=== PATIENT | female | born 1955 | race Caucasian/White ===

== ENCOUNTER 2018-07-31 00:35 | Outpatient (CLI) | payer BC, SELFPAY ==
--- NOTE | 2018-07-31 07:35 | DI.MRI_ITS ---
SYMPTOM/DIAGNOSIS: BILAT LEG WEAKNESS R29.898 MRI LUMBAR SPINE: Comparison 05/09/17. The conus medullaris has a normal appearance and location. At L5-S1 there is a mild diffuse disc bulge but no focal disc herniation, central spinal canal or neuroforaminal stenosis seen. There are degenerative changes of the facets with facet joints present. At L4-L5 there is disc desiccation and a mild diffuse disc bulge. There are hypertrophic changes of the facets. No focal disc herniation or central spinal canal stenosis is seen. There is mild narrowing of the neural foramen bilaterally but no compression of the exiting nerve roots seen. At L3-L4 there is disc desiccation. There is a diffuse disc bulge. There are degenerative changes of the facets. No significant central spinal canal stenosis or focal disc herniation seen. There is mild narrowing of the neural foramen bilaterally but no compression of the exiting nerve roots seen. At L2-L3 there is disc desiccation. No focal disc herniation, central spinal canal or neural foraminal stenosis seen. There does appear to be a mild diffuse disc bulge. At L1-L2 there is a mild diffuse disc bulge but no focal disc herniation, central spinal canal stenosis or significant neural foraminal stenosis present. Overall, there does not appear to be any significant change in appearance of the lumbar spine compared to the prior examination. IMPRESSION: Stable multi-level degenerative changes in the lumbar spine.
--- NOTE | 2018-07-31 07:52 | DI.MAMMO_ITS ---
SYMPTOM/DIAGNOSIS: SCREENING, Z12.31 MAMMOGRAMS: Mammograms were interpreted according to the usual protocol including computer analysis with CAD system, tomosynthesis and C view imaging. Comparison is made with the prior examinations. No suspicious masses or microcalcifications are seen. There is no definite evidence of malignancy. IMPRESSION: Negative mammogram. Routine screening is recommended. Category 1 , breast density B. MQSA ASSESSMENT OF FINDINGS: Negative. Category 1. Patient will receive a letter notifying them of these results. BI-RADS category B. There are scattered areas of fibroglandular density.
== END 2018-07-31 00:55 ==
PROVIDERS: PCP Family Medicine; Visit Provider Emergency Medicine
DX: Z12.31 Encounter for screening mammogram for malignant neoplasm of breast (principal); R29.898 Other symptoms and signs involving the musculoskeletal system; M51.36 Other intervertebral disc degeneration, lumbar region
CPT/HCPCS: 77063; 77067; 72148

== ENCOUNTER 2018-09-05 12:06 | Outpatient (CLI) | payer BC, SELFPAY ==
[2018-09-05 12:14] VITALS: BP 111/70; PULSE 80; RESP 22; TEMP 35.8; O2SAT 97
[2018-09-05 13:30] VITALS: BP 142/71; PULSE 75; RESP 13; O2SAT 98
--- NOTE | 2018-09-05 13:32 | DI.RAD_ITS ---
SYMPTOM/DIAGNOSIS: LUMBAR RADICULOPATHY, TRANSFORAMINAL EPIDURAL STEROID INJECTION C-ARM: Fluoroscopy Time: 36.1 sec. 33.66 mGy Fluoroscopy was utilized by Dr. Carbajal during the performance of a transforaminal epidural steroid injection. Please refer to the procedure report for complete details.
[2018-09-05] MEDS: methylPREDNISolone ACETATE 40 MG/ML VIAL IJ (13:35)
[2018-09-05] MEDS: Omnipaque 240 MG/ML 50 ML BTL IJ (13:35)
[2018-09-05] MEDS: Bupivacaine 0.5% Pres-Free 30 ML VIAL IJ (13:36)
--- NOTE | 2018-09-05 13:49 | PDOC.PAIN_ITS ---
Pain Clinic Procedure Note Current Active Problems Problem Status Onset Lumbar disc herniation with radiculopathy Acute 11/28/17 LUMBAR / SACRAL TRANSFORAMINAL INJECTION ONUR GRAFF has been [facility] for a transforaminal nerve root block and steroid injection. COMMENTS: Patient has had right radicular symptoms foot drop with possible disc fragment at L5. This year and a half. Patient was interviewed and the medical record reviewed. There were no medical, pharmacologic, radiographic or other structural contraindications to attempting fluoroscopically guided transforaminal nerve root block and epidural steroid injection. Risks and expected side effects as well as potential benefit of the procedure were reviewed and voiced concerns addressed. The printed consent form was signed and witnessed. Standard time-out procedure was performed. Patient was placed in the prone position on the fluoroscopy table and automated blood pressure cuff and pulse oximeter applied. Fluoroscopy was utilized to identify the {right/ neural foramen between L5 and S1 . A skin ming was made for the needle insertion site. A Chlorhexadine prep was carried out, and sterile drapes were applied. Local anesthesia was achieved in the skin and subcutaneous tissues. A 22 gauge curved tip spinal needle was then inserted, advanced with fluoroscopic guidance into the neural foramen, confirmed on the lateral view. After negative aspiration, 2 ml of Omnipaque 240 was injected confirming position in A/P and lateral views. This showed a good spread of dye transforaminally into the epidural space. There was no vascular update with contrast injection under continuous fluoroscopy and digital substraction. 40 mg of Depo-Medrol was injected, followed by 0.5 ml of 1% Xylocaine flush for the nerve root block, as well. There was no unusual discomfort expressed.The needle was withdrawn. The patient tolerated the procedure well. A Band-Aid was applied. Vital signs were stable throughout the procedure and were as recorded in nursing records. If given, dosages of intravenous drugs for anxiolysis and analgesia were documented in nursing records. Follow up plans and appointments were discussed. Post procedure instruction was given as documented in nursing records and patient was discharged in the care of an identified special events driver. COMMENTS: Contrast spread spread to the L4 level. I would recommend seeing her in the office if this is not effective. Patient will follow-up as needed CC: Rojelio Rajput MD
== END 2018-09-05 12:26 ==
PROVIDERS: PCP Family Medicine; Visit Provider Anesthesiology Pain Medicine
DX: M51.16 Intervertebral disc disorders with radiculopathy, lumbar region (principal)
CPT/HCPCS: 64483; 72100; J1030; Q9967

== ENCOUNTER 2019-01-30 10:25 | Outpatient (CLI) | payer BC, SELFPAY ==
[2019-01-30 12:31] LABS: Abs Immature Grans 0.01 k/cumm (0.0-0.09); Absolute Basophil Count 0.02 k/cumm (0.0-0.2); Absolute Eosinophil Count 0.08 k/cumm (0.0-0.7); Absolute Lymphocyte Count 1.95 k/cumm (1.2-3.4); Absolute Monocyte Count 0.34 k/cumm (0.11-0.7); Absolute Neutrophil Count 2.62 k/cumm (1.2-6.7); Basophils % 0.4; Eosinophils % 1.6; HCT 44.3 % (36.0-46.0); HGB 14.6 g/dL (12.0-15.5); Immature Grans % 0.2; Lymphocytes % 38.8; Mean Corpuscular Hemoglobin 28.7 pg (27.0-33.0); Mean Platelet Volume 9.9 fL (8.0-11.0); Monocytes % 6.8; Neutrophils % 52.2; Platelet Count 295 x1000/uL (130-400); RBC 5.09 m/cumm (4.00-5.20); RBC Distribution Width 13.1 % (11.7-14.6); White Blood Cell Count 5.02 k/cumm (4.4-10.8)
[2019-01-30 13:02] LABS: ALT 27 U/L (12-78); AST 14 U/L (15-37); Albumin 3.6 g/dL (3.4-5.0); Alkaline Phosphatase 83 U/L (46-116); Anion Gap 8.3 mmol/L (3-11); BUN 17 mg/dL (7-18); Bilirubin, Total 0.4 mg/dL (0.2-1.0); CO2 26.7 mmol/L (21.0-32.0); CREATININE 0.92 mg/dL (0.55-1.02); Calcium 9.2 mg/dL (8.5-10.1); Chloride 104 mmol/L (98-107); Glucose 91 mg/dL (70-100); Potassium 4.3 mmol/L (3.5-5.1); Sodium 139 mmol/L (136-145); Total Protein 6.6 g/dL (6.4-8.2)
== END 2019-01-30 10:45 ==
PROVIDERS: PCP Family Medicine; Visit Provider Emergency Medicine
DX: R10.9 Unspecified abdominal pain (principal)
CPT/HCPCS: 36415; 80053; 85025

== ENCOUNTER 2019-01-31 08:12 | Outpatient (REF) | payer BC, SELFPAY | END 2019-01-31 08:32 | LOC: LBN 08:12 | PROVIDERS: PCP Family Medicine; Visit Provider Emergency Medicine | DX: R10.9 Unspecified abdominal pain (principal) | CPT/HCPCS: 87329; 87324 ==

== ENCOUNTER 2019-02-01 08:22 | Outpatient (REF) | payer BC, SELFPAY | END 2019-02-01 08:42 | LOC: LBN 08:22 | PROVIDERS: PCP Family Medicine; Visit Provider Emergency Medicine | DX: R10.9 Unspecified abdominal pain (principal) | CPT/HCPCS: 87329 ==

== ENCOUNTER 2019-03-22 01:45 | Outpatient (CLI) | payer BC, SELFPAY ==
--- NOTE | 2019-03-22 15:44 | DI.MRI_ITS ---
SYMPTOMS/DIAGNOSIS: RIGHT LEG WEAKNESS AND SCIATICA, R29.898 MRI OF THE LUMBAR SPINE: Comparison is made with July,. T1, T2 and STIR sagittal, and T1 and T2 axial sequences were performed. At L1-2, there is mild disc bulging and mild facet degenerative changes. There is mild narrowing of the AP dimension of the central canal. At L2-3, there is minimal concentric disc bulging. There is no significant neural foraminal narrowing or central canal stenosis. At L3-4, there is disc bulging eccentric toward the right. There may be an impingement on right-sided nerve roots. There are mild fact degenerative changes combining with the disc bulging to produce severe right neural foraminal narrowing and moderate left neural foraminal narrowing. At L4-5, there is mild concentric disc bulging. There are mild facet degenerative changes combining with the disc bulging to produce mild to moderate neural foraminal narrowing. At L5-S1, there is no significant disc bulging. There are minimal facet degenerative changes. There is no central canal stenosis or neural foraminal narrowing. The conus medullaris appears intact. There are parapelvic cysts of the left kidney. The aorta is normal in diameter. IMPRESSION: Disc bulging, eccentric toward the right at L3-4 causing bilateral neural foraminal narrowing, right greater than left. There is also likely nerve root impingement.
== END 2019-03-22 02:05 ==
PROVIDERS: PCP Family Medicine; Visit Provider Emergency Medicine
DX: R29.898 Other symptoms and signs involving the musculoskeletal system (principal); M54.31 Sciatica, right side; M51.16 Intervertebral disc disorders with radiculopathy, lumbar region
CPT/HCPCS: 72148

== ENCOUNTER 2019-08-07 10:19 | Outpatient (CLI) | payer BC, SELFPAY ==
--- NOTE | 2019-08-07 09:41 | DI.RAD_ITS ---
EXAM: XR CHEST 2V PA LATERAL CLINICAL HISTORY: chest pain, R07.9. TECHNIQUE: 2D digital imaging was performed. COMPARISON: RIGHT SHOULDER COMPLETE from 09/01/2017 FINDINGS: LUNGS: Clear. No pleural abnormality seen. HEART: Normal. MEDIASTINUM: Normal. OTHER FINDINGS:Normal. IMPRESSION: No acute pulmonary findings.
[2019-08-07 10:06] LABS: Abs Immature Grans 0.01 k/cumm (0.0-0.09); Absolute Basophil Count 0.03 k/cumm (0.0-0.2); Absolute Lymphocyte Count 1.78 k/cumm (1.2-3.4); Absolute Monocyte Count 0.39 k/cumm (0.11-0.7); Absolute Neutrophil Count 2.95 k/cumm (1.2-6.7); Basophils % 0.6; Eosinophils % 3.7; HCT 42.7 % (36.0-46.0); Immature Grans % 0.2; Lymphocytes % 33.2; Mean Corp. HGB Concentration 32.8 g/dL (32.0-36.0); Mean Corpuscular Hemoglobin 28.8 pg (27.0-33.0); Mean Corpuscular Volume 87.9 fL (80-95); Mean Platelet Volume 9.4 fL (8.0-11.0); Monocytes % 7.3; Platelet Count 333 x1000/uL (130-400); RBC 4.86 m/cumm (4.00-5.20); RBC Distribution Width 13.5 % (11.7-14.6); White Blood Cell Count 5.36 k/cumm (4.4-10.8)
[2019-08-07 10:50] LABS: D-Dimer 711 ng/mlFEU (<500)
[2019-08-07 10:53] LABS: ESR 7 mm/hr (0-30)
[2019-08-07 11:03] LABS: ALT 22 U/L (14-59); AST 9 U/L (15-37); Albumin 3.7 g/dL (3.4-5.0); Alkaline Phosphatase 68 U/L (46-116); Anion Gap 8.3 mmol/L (3-11); BUN 13 mg/dL (7-18); Bilirubin, Total 0.4 mg/dL (0.2-1.0); C-Reactive Protein 0.12 mg/dL (0.0-0.3); CO2 27.7 mmol/L (21.0-32.0); CREATININE 0.92 mg/dL (0.55-1.02); Calcium 9.1 mg/dL (8.5-10.1); Chloride 107 mmol/L (98-107); Glucose 89 mg/dL (74-106); Sodium 143 mmol/L (136-145); Total Protein 6.3 g/dL (6.4-8.2)
--- NOTE | 2019-08-07 15:01 | DI.CT_ITS ---
EXAM: CT CHEST PE CTA CLINICAL HISTORY: SOB, chest pain, ? PE, R06.02 TECHNIQUE: Imaging Protocol: Axial CT angiography was performed with multislice acquisition and mul tiplanar and/or 3D reconstructions. CONTRAST MATERIAL: Intravenous: Omnipaque 350 Contrast volume:100 mL contrast route:IV - Oral:No COMPARISON: CHEST ABD PELVIS WITH CONTRAST from 05/18/2010 PELVIC/LOWER ABD WITH CON(P) from 01/21/2016 RIGHT SHOULDER COMPLETE from 09/01/2017 FINDINGS: Pulmonary Arteries: No evidence of filling defect to suggest pulmonary emboli. Tracheobronchial tree: Patent where visualized. Mediastinum and Angela: No dominant adenopathy or fluid collection. Pulmonary parenchyma: No consolidation or dominant measurable mass. No architectural distortion. Area s of atelectasis or scarring are present. Pleura: No effusion or pneumothorax. Heart/Aorta: Thoracic aorta non-dilated. The heart is not dilated. No coronary artery calcifications are seen. No evidence of right heart strain. Upper abdomen: Unremarkable. Bones: There are mild compression deformities of the superior endplates of a few thoracic vertebral b odies; these are of indeterminate acuity. Followup as clinically appropriate. IMPRESSION: No evidence of a pulmonary embolus, thoracic aortic dissection or aneurysm. DATA REPOSITORY: All CT scans at this facility are submitted to the National Radiology Data Registry (NRDR) Dose Index Registry (DIR) with the [employer] (ACR). RADIATION OPTIMIZATION: All CT scans at this facility use at least one of these dose optimization te chniques: automated exposure control; mA and/or kV adjustment per patient size (includes targeted exa ms where dose is matched to clinical indication); or iterative reconstruction.
[2019-08-07] MEDS: Omnipaque 350 MG/ML 100 ML BTL IJ (15:06)
== END 2019-08-07 10:39 ==
PROVIDERS: PCP Emergency Medicine; Visit Provider Emergency Medicine
DX: R07.9 Chest pain, unspecified (principal); R06.02 Shortness of breath
CPT/HCPCS: 36415; 71275; 80053; 85652; 71046; 85025; 85379; 86140; J3490

== ENCOUNTER 2021-03-29 14:53 | Outpatient (REF) | payer MEDICARE, BC, SELFPAY | END 2021-03-29 14:54 | disposition home or self-care (01) | LOC: LBN 14:53 | PROVIDERS: PCP Emergency Medicine; Visit Provider Physician Assistant | DX: N39.0 Urinary tract infection, site not specified (principal) | CPT/HCPCS: 87086 ==

== ENCOUNTER 2021-05-08 10:23 | Emergency (ER) | payer MEDICARE, BC, SELFPAY ==
[2021-05-08 10:26] VITALS: BP 130/71; PULSE 64; RESP 16; TEMP 36; O2SAT 98
--- NOTE | 2021-05-08 10:42 | W.ED.GENAD ---
Discharge Plan Disposition Patient Disposition: HOME Condition: Stable Discharge Details Clinical Impression: Vertical diplopia, Headache Primary Care Provider: Percy Alcala ED Provider: Flor Reese Home Meds and New Rx's Prescriptions: Continued Shingrix Adjuvant Component-PF Suspension 0.5 ml IM ONCE Qty: 0.5 RF: 1 cetirizine [Zyrtec] 10 MG tablet 10 mg PO BID Qty: 180 RF: 4 ibuprofen 200 MG capsule 2 cap PO Q4H PRN RF: 0 albuterol sulfate [Ventolin HFA] 8 GM HFA aerosol inhaler 2 puff Inhalation QID PRNQty: 1 RF: 1 sumatriptan succinate [Imitrex] 50 mg tablet 50 mg PO DIRECTED Qty: 10 RF: 0 fluticasone propion-salmeterol [Advair Diskus] 250-50 mcg/dose blister with device 1 inh Inhalation DAILY Qty: 3 RF: 6 gabapentin 300 mg capsule 300 mg PO HS RF: 0 Discharge Instructions Instructions: General Headache (ED) Additional Instructions: Please continue to encourage hydration. You may use Tylenol and/or ibuprofen as needed for discomfort. Plan is for you to have an MRI/MRV on Monday or Monday. You also have prompt follow-up with optic neurology. Your imaging and labs are reassuring here today. Dr. Howard with neurology at [facility] did recommend that he hold off on any dosing of your sumatriptan . If you develop fever/chills, increased pain, inability stay hydrated, new neurological deficits or other new/worsening symptoms please seek care immediately once again. Referrals: Percy Alcala, [Primary Care Provider] - Discharge Data Discharge Date/Time-TO BE ENTERED AT DEPARTURE: 05/08/21 15:30 Medical Decision Making Patient is a pleasant 65-year-old female presenting today with chief complaint of visual changes and headache. She reports that headache began approximately 1 week ago. She does report that she suffers from chronic migraines. However, typically the migraine pain is on the right side and this began the left side. She describes a sudden onset. States that the headache has remained persistent since beginning and rates the pain at a 3 out of 10. 3 days ago she began having vertical diplopia, worse in the right side. States that she was seen by [facility]. They did not note any ocular abnormalities and referred her to an ocular neurologist at [facility] with appointment pending. She is found wearing an eye patch helpful at this decreases her diplopia. She denies any fevers or chills. No rash. Indicates the left jainism is area of discomfort. Has not had any jaw claudication. On exam, patient appears nontoxic. She has no nuchal rigidity. She does have the vertical diplopia. Her baseline she has been, I do not note any visual field abnormalities. Extraocular movements are intact. I cannot appreciate any correction when covering one eye or the other for the vertical nystagmus. However, [id number] does demonstrate that she has to come up just slightly particularly with the right hand at the last minute when she corrects for her vision. No other neurological deficit. No pain with palpation over the left jainism. Pathology has been ruled out patient continues to have vertical diplopia, I am concerned for intracranial pathology as source of her symptoms. While she did not have any jainism pain with palpation, she does indicate this is area of discomfort. Will obtain ESR to rule out temporal arteritis although symptoms are not consistent with this. Also consider brain mass, bleed. Will obtain CT, CTA as well as baseline labs. Also consider complex migraine given the patient's history of migraines. Patient declines any analgesics at this time. Labs reviewed. No leukocytosis. Stable H&H. CMP without significant abnormality. ESR within normal limits. FINDINGS: Right common carotid artery: No stenosis. No dissection or occlusion. Right internal carotid artery: No stenosis of the extracranial segment. No dissection or occlusion. Right external carotid artery: No occlusion or stenosis of the origin. Left common carotid artery: No stenosis. No dissection or occlusion. Left internal carotid artery: No stenosis of the extracranial segment. No dissection or occlusion. Left external carotid artery: No occlusion or stenosis of the origin. Right vertebral artery: No stenosis. No dissection or occlusion. Left vertebral artery: No stenosis. No dissection or occlusion. Soft tissues: Normal. No significant soft tissue swelling. Bones/joints: No acute fracture. IMPRESSION: No stenosis or occlusion. ANTERIOR CIRCULATION: Right internal carotid artery: Unremarkable. Intracranial segment is patent with no significant stenosis. No aneurysm. Right middle cerebral artery: Unremarkable. No occlusion or significant stenosis. No aneurysm. Right anterior cerebral artery: Unremarkable. No occlusion or significant stenosis. No aneurysm. Left internal carotid artery: Unremarkable. Intracranial segment is patent with no significant stenosis. No aneurysm. Left middle cerebral artery: Unremarkable. No occlusion or significant stenosis. No aneurysm. Left anterior cerebral artery: Unremarkable. No occlusion or significant stenosis. No aneurysm POSTERIOR CIRCULATION: Right vertebral artery: Unremarkable. No occlusion or significant stenosis. No aneurysm. Left vertebral artery: Unremarkable. No occlusion or significant stenosis. No aneurysm. Basilar artery: Unremarkable. No occlusion or significant stenosis. No aneurysm. Right posterior cerebral artery: Unremarkable. No occlusion or significant stenosis. No aneurysm. Left posterior cerebral artery: Unremarkable. No occlusion or significant stenosis. No aneurysm. Brain: No definite mass, mass effect, or midline shift. Cerebral ventricles: No ventriculomegaly. Bones/joints: Unremarkable. No acute fracture. Soft tissues: Unremarkable. IMPRESSION: No large vessel stenosis or occlusion. No aneurysm seen. With patients persistent vertical diplopia, as well as headache, will consult with neurology at [facility] [place]. Patient reports that she would now like something for her headache. Headache is not worsening. Will give Compazine and Benadryl. Spoke with Dr. Howard with neurology at [facility] [place]. Questioning trochlear nerve palsy or complex migraine. Does not believe she needs MRI today but should have MRI/MRV Monday or Monday. If it gets worse go to for evaluation for neurology. Recommended depakote for MOSLEY if needed but avoid tryptans. She has advised the plan of Compazine would be appropriate. Discussed these recommendations with the patient. She is managing well with her eye patch which helps remove the diplopia. She is also able to keep headache under control with avoidance of bright lights. Strict return precautions were discussed. Patient does feel safe going home until MRI and MRV are able to be obtained. She will call up with neurology at [facility] [place] on Monday to schedule prompt follow-up appointment. Dr. Howard is going to try to move her appointment up that she is able to see their specialist urgently. All of her questions and concerns were addressed and she is in agreement this plan. HPI General Mode of arrival: ambulatory. Date/Time Provider Initiated Documentation: 05/08/21 10:28. Limitations to Documentation: no limitations. Information obtained by: patient, family () and RN notes reviewed. History of Present Illness 65 year old F presents to the emergency department with the chief complaint of headache, vertical diplopia, described as moderate, with intensity rated at 3. Quality is described as aching, and is localized to the head. Patient reports no radiation. Patient started experiencing this week(s) (1) and it has been constant. No relieving factors improve symptom(s), Other factors that worsen symptoms (photophobia) . Patient notes headaches; denies confusion, chest pain, diaphoresis, fever/chills, loss of appetite, nausea/vomiting, rash, shortness of breath, syncope and weakness. Patient did receive the following treatments prior to arrival, NSAID Related Data Home Medications Medication Instructions Recorded Confirmed cetirizine [Zyrtec] 10 mg PO BID #180 01/31/13 05/08/21 ibuprofen 2 cap PO Q4H PRN 02/23/15 05/08/21 albuterol sulfate [Ventolin HFA] 2 puff INHALATION QID PRN #1 ea 06/23/16 03/29/21 sumatriptan succinate 50 mg tablet 50 mg PO DIRECTED #10 tab 02/11/19 05/08/21 adjuvant AS01B (PF)vial 1 of 2 0.5 ml IM ONCE #0.5 ml 07/08/20 03/29/21 fluticasone 250 mcg-salmeterol 50 1 inh INHALATION DAILY #3 each 10/08/20 05/08/21 mcg/dose blistr powdr for inhalation gabapentin 300 mg PO HS 05/08/21 05/08/21 Previous Rx's Medication Instructions Recorded sumatriptan succinate 50 mg tablet 50 mg PO DIRECTED #10 tab 02/11/19 adjuvant AS01B (PF)vial 1 of 2 0.5 ml IM ONCE #0.5 ml 07/08/20 fluticasone 250 mcg-salmeterol 50 1 inh INHALATION DAILY #3 each 10/08/20 mcg/dose blistr powdr for inhalation Allergies Allergy/AdvReac Type Severity Reaction Status Date / Time Penicillins Allergy Unknown HIVES Verified 05/08/21 10:34 azithromycin AdvReac Intermediate nausea Verified 05/08/21 10:34 vomitting General Stated Complaint: Headache OZZIE: 3 Review of Systems Constitutional Constitutional: Reports as per HPI, Denies chills, Denies fever(s), Denies frequent falls, Reports headache(s) and Denies weakness Eyes Eyes: Reports as per HPI, Denies blurry vision, Reports change in vision, Reports diplopia (vertical) and Reports photophobia ENT Ears, Nose, Mouth, and Throat: Denies vertigo, Reports headache(s) and Denies neck pain Cardiovascular Cardiovascular: Reports as per HPI, Denies chest pain, Denies lightheadedness, Denies radiating jaw, neck or arm pain, Denies dyspnea and Denies dyspnea on exertion Respiratory Respiratory: Reports as per HPI, Denies chest congestion, Denies cough, Denies dyspnea, Denies dyspnea on exertion, Denies stridor and Denies wheezing Gastrointestinal Gastrointestinal: Reports as per HPI, Denies abdominal pain, Denies change in bowel habits, Denies nausea and Denies vomiting Musculoskeletal Musculoskeletal: Reports as per HPI, Denies back pain, Denies myalgias, Denies muscle cramps, Denies neck pain and Denies numbness Integumentary/Breasts Skin/Breast: Reports as per HPI and Denies rash Neurologic Neurologic: Reports as per HPI, Denies abnormal movements, Denies abnormal speech, Denies behavioral changes, Denies confusion, Denies vertigo, Denies frequent falls, Reports headache(s), Denies localized weakness, Denies numbness, Denies sensory deficit and Denies weakness Psychiatric Psychiatric: Denies behavioral changes and Denies confusion Allergic/Immunologic Allergic/Immunologic: Denies wheezing PFSH Medical History Foot callus Surgical History BLADDER REPAIR Colonoscopy - IV Sedation (01/09/17) Colonoscopy - MAC 2005 Hysterectomy, Laproscopic Family History Mother , AGE 57 Ovarian cancer Father , AGE 87 Bladder cancer Heart disease Sister No problems noted. Son No problems noted. Daughter No problems noted. Maternal Grandfather , AGE 93 No problems noted. Paternal Grandfather , AGE 65 No problems noted. Maternal Grandmother , AGE 61 Cancer Paternal Grandmother , AGE 93 Breast cancer Social History Smoking/Tobacco Use Status: Never Smoking risk assessment performed?: Yes Alcohol Intake: current Alcohol Intake frequency: a few times a month Alcohol type: beer Drug use: Occasionally Substance use type: former substance user and marijuana Caregiver/Support person: No Household members: spouse Housing: house Number of Children: 2 Do you need help understanding health information?: Always Pets and animals: No Sexually active: Yes Do you think of yourself as: straight/heterosexual Current gender identity: female What is your relationship status?: How often do you talk on the phone with friends or family?: three or more times per week How often do you get together with friends or relatives?: twice per week How often do you attend buddhism or confucianism services?: decline to answer Do you belong to any clubs or organized social groups?: yes Panel score (0-1 are the most socially isolated patients): 3 What type of physical activity do you participate in: walking, weight lifting and other Duration: 45-60 minutes/day Frequency: daily Shraddha/Hindu: None Special shraddha needs: No Do you feel safe at home: Yes Do you feel safe in your relationship?: Yes Exam Const General: cooperative, healthy appearing, uncomfortable, no acute distress, well developed and well groomed Nutritional Appearance: average body habitus and well nourished Orientation: alert, awake and oriented x3 HENMT Head: normal to inspection, no palpable skull fracture, normocephalic and atraumatic Ears: hearing grossly normal bilaterally, external ears normal and TM's normal bilaterally General nose exam: external nose normal Mouth: oral mucosae normal and moist mucous membranes Throat: posterior oropharynx normal Eyes General: appearance normal, both eyes and all related structures Visual Guillory: normal visual guillory by confrontation Alignment and Position: alignment normal Periorbital: periorbital findings normal Eyelids: eyelids normal Sclera: sclerae normal Cornea: corneas normal Pupils: PERRL and normal by confrontation EOM: EOM intact bilaterally Neck Neck: normal visual inspection, full ROM, no lymphadenopathy and no meningeal signs Resp Effort & Inspection: normal respiratory effort, able to speak in complete sentences and no respiratory distress Auscultation: clear to auscultation bilaterally, no rales, no rhonchi and no wheezes Cardio Rate: regular rate Rhythm: regular rhythm Heart Sounds: S1 normal and S2 normal Back/Spine/Pelvis Cervical Spine: normal cervical lordosis and cervical ROM normal Skin General skin exam: no rashes or lesions noted Neuro General: patient alert, patient awake and patient oriented x3 Cranial Nerves: CN's II-XI intact bilaterally Cognition: normal cognition Speech: speech normal Gait: normal gait Motor: muscle tone normal throughout, strength 5/5 throughout, no pronator drift, no movement abnormalities noted and no fasciculations Sensory Exam: no sensory deficits noted Coordination: [id number] test normal, [id number] test normal and Romberg test normal Extrem General: normal to inspection, capillary refill normal, no pedal edema and no calf tenderness Psych Appearance: grossly normal and well kempt Mental Status: mental status grossly normal Speech and Movement: speech and movement normal Course Vital Signs Vital signs: Vital Signs Temperature 36 C L 05/08/21 10:26 Pulse 64 05/08/21 10:26 Respiratory Rate 16 05/08/21 10:26 Blood Pressure 130/71 05/08/21 10:26 Pulse Oximetry 98 05/08/21 10:26 Temperature 36 C L 05/08/21 10:26 Temperature Source Skin 05/08/21 10:26 Pulse 64 05/08/21 10:26 Respiratory Rate 16 05/08/21 10:26 Respiratory Effort 05/08/21 10:41 Blood Pressure 130/71 05/08/21 10:26 Blood Pressure Position Sitting 05/08/21 10:26 Pulse Oximetry 98 05/08/21 10:26 Oxygen Delivery Method Room Air 05/08/21 10:26 Oxygen Flow Rate 0 05/08/21 10:26 Pain Level 3 05/08/21 10:35 Comment 05/08/21 10:26
--- NOTE | 2021-05-08 11:20 | DI.CT_ITS ---
Exam(s) CT HEAD WO EXAM: CT HEAD WO CLINICAL HISTORY: vertical double vision, MOSLEY. TECHNIQUE: Imaging Protocol: Axial computed tomography images with coronal and sagittal reformatted images were created and reviewed COMPARISON: No exams were available for comparison FINDINGS: Ventricles and Extra axial spaces: Normal in size and morphology for the patient's age. Hemorrhage: None. Cerebral parenchyma: Normal. No evidence of an acute territorial infarct. Midline shift: None. Brainstem/Cerebellum: Normal. Calvarium: Normal. Visualized Paranasal sinuses/Mastoids: Mucous retention cyst or polyp in the left sphenoid sinus. Mi ld mucosal thickening in the ethmoid sinuses. The remaining visualized paranasal sinuses and mastoid air cells are clear. Soft Tissues: Unremarkable. IMPRESSION: No acute intracranial process. RADIATION DOSE DELIVERED: 673.9mGy.cm Total DLP DATA REPOSITORY: All CT scans at this facility are submitted to the National Radiology Data Registry (NRDR) Dose Index Registry (DIR) with the [employer] (ACR). RADIATION OPTIMIZATION: All CT scans at this facility use at least one of these dose optimization te chniques: automated exposure control; mA and/or kV adjustment per patient size (includes targeted exa ms where dose is matched to clinical indication); or iterative reconstruction.
[2021-05-08 11:26] LABS: Abs Immature Grans 0.03 10^3/uL (0.0-0.06); Absolute Basophil Count 0.05 10^3/uL (0.0-0.2); Absolute Eosinophil Count 0.17 10^3/uL (0.0-0.7); Absolute Lymphocyte Count 2.23 10^3/uL (1.2-3.4); Absolute Neutrophil Count 4.07 10^3/uL (1.2-6.7); Basophils % 0.7; Eosinophils % 2.4; HCT 45.5 % (36.0-46.0); HGB 14.7 g/dL (11.2-15.7); Immature Grans % 0.4; Lymphocytes % 31.6; MCH 28.2 pg (27.0-33.0); MCHC 32.3 % (32.0-36.0); MCV 87.3 fL (80-95); MPV 9.4 fL (8.0-11.0); Monocytes % 7.1; Neutrophils % 57.8; Nucleated RBC 0 %; Platelet Count 311 10^3/uL (130-400); RBC 5.21 10^6/uL (3.93-5.22); RDW 12.6 % (11.7-14.6); RDW-SD 40.1 fL; WBC 7.05 10^3/uL (4.4-10.8)
[2021-05-08 11:28] LABS: ESR 14 mm/hr (0-30)
[2021-05-08] MEDS: ACETAMINOPHEN 1,000 MG/100 ML BTL 400 MG IVPB (11:33)
--- NOTE | 2021-05-08 11:43 | DI.VRAD_ITS ---
PROCEDURE INFORMATION: Exam: CT Head Without Contrast Exam date and time: 05/08/2021 10:42 AM Age: 65 years old Clinical indication: Pain; Headache not specified; Patient HX: Vertical double vision, MOSLEY TECHNIQUE: Imaging protocol: Computed tomography of the head without contrast. Radiation optimization: All CT scans at this facility use at least one of these dose optimization techniques: automated exposure control; mA and/or kV adjustment per patient size (includes targeted exams where dose is matched to clinical indication); or iterative reconstruction. COMPARISON: No relevant prior studies available. FINDINGS: Brain: No intracranial hemorrhage, edema or other acute abnormalities are seen in the brain. There is no mass effect or midline shift. There is mild generalized chronic atrophy with prominence of the ventricles and sulci. Cerebral ventricles: There is mild ventricular prominence due to chronic atrophy. Paranasal sinuses: There is scattered mild mucosal thickening in the ethmoid sinuses. There is a lobulated 14 mm retention cyst in the left side of the sphenoid sinus. Mastoid air cells: Visualized mastoid air cells are well aerated. Bones/joints: Unremarkable. No acute fracture. Soft tissues: Unremarkable. IMPRESSION: 1. No acute abnormality is seen in the brain. 2. Mild chronic atrophy. 3. Mild mucosal disease in the ethmoid sinuses and sphenoid sinus. Dictated and Authenticated by: Hossein Pereira MD. Ordering:PB Ray MD
[2021-05-08 12:05] LABS: ALT 32 U/L (14-59); AST 12 U/L (15-37); Albumin 3.2 g/dL (3.4-5.0); Alkaline Phosphatase 71 U/L (46-116); Anion Gap 4.4 mmol/L (3-11); BUN 15 mg/dL (7-18); Bilirubin, Total 0.4 mg/dL (0.2-1.0); CO2 29.6 mmol/L (21.0-32.0); CREATININE 0.9 mg/dL (0.55-1.02); Calcium 8.8 mg/dL (8.5-10.1); Chloride 107 mmol/L (98-107); Glucose 95 mg/dL (74-106); Potassium 3.9 mmol/L (3.5-5.1); Sodium 141 mmol/L (136-145); Total Protein 6.3 g/dL (6.4-8.2)
[2021-05-08 12:07] LABS: PTT Activated 23.4 sec (21.0-27.5); Prothrombin Time 9.6 sec (9.3-11.0)
--- NOTE | 2021-05-08 13:12 | DI.CT_ITS ---
Exam(s) CT BRAIN NECK CTA EXAM: CT BRAIN NECK CTA CLINICAL HISTORY: vertical diplopia, left sided MOSLEY suddenonset. TECHNIQUE: Imaging Protocol: Axial CT angiography was performed with multi-slice acquisition and mu lti-planar and/or 3D reconstructions. CONTRAST MATERIAL: Intravenous: Omnipaque 350 Contrast volume:85 mL COMPARISON: CT CT CHEST PE CTA from 08/07/2019 FINDINGS: CT Head w: Ventricles and Extra axial spaces: Normal in size and morphology for the patient's age. Hemorrhage: None. Cerebral parenchyma: Normal. Midline shift: None. Brainstem/Cerebellum: Normal. Calvarium: Normal. Visualized Paranasal sinuses/Mastoids: There is a mucous retention cyst or polyp in the left sphenoid sinus. There is mucosal thickening in a few ethmoid air cells. The remaining visualized paranasal sinuses and mastoid air cells are clear. Soft Tissues: Unremarkable. Enhancement: Unremarkable. CTA Neck W: Common Carotid: Right: No dissection, occlusion or significant stenosis. Left: No dissection, occlusion or significant stenosis. External Carotid: Right: No occlusion or significant stenosis. Left: No occlusion or significant stenosis. Internal Carotid: Right: No dissection, occlusion or significant stenosis. Left: No dissection, occlusion or significant stenosis. Vertebral Artery: Right: No dissection, occlusion or significant stenosis. Left: No dissection, occlusion or significant stenosis. Lung Apices: Normal. Bones: Mild degenerative changes are seen in the cervical spine. Thyroid gland: Unremarkable. Soft Tissues: Normal. CTA Brain W: Internal Carotid Arteries: Petrous: Normal. Cavernous: Normal. Cerebral: Normal. Anterior Cerebral Arteries: Right: No aneurysm, occlusion or significant stenosis. Left: No aneurysm, occlusion or significant stenosis. Middle Cerebral Arteries: Right: No aneurysm, occlusion or significant stenosis. Left: No aneurysm, occlusion or significant stenosis. Posterior cerebral Arteries: Right: No aneurysm, occlusion or significant stenosis. Left: No aneurysm, occlusion or significant stenosis. Vertebral Arteries: Right: No aneurysm, occlusion or significant stenosis. Left: No aneurysm, occlusion or significant stenosis. Basilar Artery: No aneurysm, occlusion or significant stenosis. IMPRESSION: 1. Normal CTA examination of the [place]. 2. Unremarkable postcontrast CT Head. 3. Normal CTA examination of the neck. RADIATION DOSE DELIVERED: 1,098.26mGy.cm Total DLP DATA REPOSITORY: All CT scans at this facility are submitted to the National Radiology Data Registry (NRDR) Dose Index Registry (DIR) with the [employer] (ACR). RADIATION OPTIMIZATION: All CT scans at this facility use at least one of these dose optimization te chniques: automated exposure control; mA and/or kV adjustment per patient size (includes targeted exa ms where dose is matched to clinical indication); or iterative reconstruction.
[2021-05-08] MEDS: Omnipaque 350 MG/ML 100 ML BTL IJ (13:23)
--- NOTE | 2021-05-08 14:19 | DI.VRAD_ITS ---
Addendum created by Antwan Alvarado MD on 05/08/2021 3:33:10 PM EDT: Since the time of the initial dictation we have been asked to evaluate the patency of the venous system. This is a examination that is targeted towards evaluation of the arterial tree. I do not see any definite venous thrombus. 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 The veins of the neck are very poorly opacified. If there is concern for an acute venous thrombus or other worrisome venous abnormality, MRV or CTV can be performed. Initial report created on 05/08/2021 2:18:46 PM EDT: PROCEDURE INFORMATION: Exam: CT Angiography Head With Contrast, Arteriography Exam date and time: 05/08/2021 12:26 PM Age: 65 years old Clinical indication: Pain; Headache; Patient HX: Vertical diplopia, left sided MOSLEY, sudden onset TECHNIQUE: Imaging protocol: Computed tomography angiography of the head with contrast. Exam focused on the arteries. 3D rendering (Not supervised by radiologist): MIP and/or 3D reconstructed images were created by the technologist. Radiation optimization: All CT scans at this facility use at least one of these dose optimization techniques: automated exposure control; mA and/or kV adjustment per patient size (includes targeted exams where dose is matched to clinical indication); or iterative reconstruction. Contrast material: [id number]; Contrast volume: 85 ml; Contrast route: INTRAVENOUS (IV); COMPARISON: CT HEAD WO 05/08/2021 11:30 AM FINDINGS: ANTERIOR CIRCULATION: Right internal carotid artery: Unremarkable. Intracranial segment is patent with no significant stenosis. No aneurysm. Right middle cerebral artery: Unremarkable. No occlusion or significant stenosis. No aneurysm. Right anterior cerebral artery: Unremarkable. No occlusion or significant stenosis. No aneurysm. Left internal carotid artery: Unremarkable. Intracranial segment is patent with no significant stenosis. No aneurysm. Left middle cerebral artery: Unremarkable. No occlusion or significant stenosis. No aneurysm. Left anterior cerebral artery: Unremarkable. No occlusion or significant stenosis. No aneurysm. POSTERIOR CIRCULATION: Right vertebral artery: Unremarkable. No occlusion or significant stenosis. No aneurysm. Left vertebral artery: Unremarkable. No occlusion or significant stenosis. No aneurysm. Basilar artery: Unremarkable. No occlusion or significant stenosis. No aneurysm. Right posterior cerebral artery: Unremarkable. No occlusion or significant stenosis. No aneurysm. Left posterior cerebral artery: Unremarkable. No occlusion or significant stenosis. No aneurysm. Brain: No definite mass, mass effect, or midline shift. Cerebral ventricles: No ventriculomegaly. Bones/joints: Unremarkable. No acute fracture. Soft tissues: Unremarkable. IMPRESSION: No large vessel stenosis or occlusion. No aneurysm seen. PROCEDURE INFORMATION: Exam: CT Angiography Neck With Contrast Exam date and time: 05/08/2021 12:26 PM Age: 65 years old Clinical indication: Pain; Headache; Patient HX: Vertical diplopia, left sided MOSLEY, sudden onset TECHNIQUE: Imaging protocol: Computed tomography angiography of the neck with contrast. 3D rendering (Not supervised by radiologist): MIP and/or 3D reconstructed images were created by the technologist. Radiation optimization: All CT scans at this facility use at least one of these dose optimization techniques: automated exposure control; mA and/or kV adjustment per patient size (includes targeted exams where dose is matched to clinical indication); or iterative reconstruction. Contrast material: [id number]; Contrast volume: 85 ml; Contrast route: INTRAVENOUS (IV); COMPARISON: CT HEAD WO 05/08/2021 11:30 AM FINDINGS: Right common carotid artery: No stenosis. No dissection or occlusion. Right internal carotid artery: No stenosis of the extracranial segment. No dissection or occlusion. Right external carotid artery: No occlusion or stenosis of the origin. Left common carotid artery: No stenosis. No dissection or occlusion. Left internal carotid artery: No stenosis of the extracranial segment. No dissection or occlusion. Left external carotid artery: No occlusion or stenosis of the origin. Right vertebral artery: No stenosis. No dissection or occlusion. Left vertebral artery: No stenosis. No dissection or occlusion. Soft tissues: Normal. No significant soft tissue swelling. Bones/joints: No acute fracture. IMPRESSION: No stenosis or occlusion. REFERENCES: NASCET CRITERIA. The degree of internal carotid artery stenosis is based on NASCET criteria. Normal is no stenosis. Mild is less than 50% stenosis. Moderate is 50-69% stenosis. Severe is 70% to 99% stenosis. Total occlusion is no detectable patent lumen. Dictated and Authenticated by: Antwan Alvarado MD. Ordering:PB Ray MD
[2021-05-08] MEDS: diphenhydrAMINE 50 MG/ML VIAL 25 MG IVP (14:49)
[2021-05-08] MEDS: Prochlorperazine 10 MG/2 ML VIAL IVP (14:52)
[2021-05-08] MEDS: Normal Saline Flush 10 ML SYR IVP (14:56)
== END 2021-05-08 15:30 | disposition home or self-care (01) ==
PROVIDERS: Emergency Provider Physician Assistant; PCP Emergency Medicine
DX: H53.2 Diplopia (principal); R51.9 Headache, unspecified; K57.30 Diverticulosis of large intestine without perforation or abscess without bleeding; H53.9 Unspecified visual disturbance
CPT/HCPCS: 36415; 70496; 70498; 80053; 85652; 96365; 96375; 99285; 70450; 85025; 85610; 85730; 99284; J0131; J0780; J1200; J3490

== ENCOUNTER 2021-05-12 11:02 | Outpatient (CLI) | payer MEDICARE, BC, SELFPAY ==
--- NOTE | 2021-05-12 10:00 | DI.MRI_ITS ---
Exam(s) MR BRAIN WO/W EXAM: MR BRAIN WO/W CLINICAL HISTORY: Horizontal diplopia, headache, H53.2, R51.9 TECHNIQUE: Multiplanar multisequence MRI of the brain was performed. CONTRAST MATERIAL: IV Contrast: 14 ML of Dotarem contrast administered. COMPARISON: CT CT BRAIN NECK CTA from 05/08/[address] BRAIN NECK CTA from 05/08/2021 FINDINGS: VENTRICLES AND EXTRA AXIAL SPACES: Normal in size and morphology for the patient's age. HEMORRHAGE: None. CEREBRAL PARENCHYMA: No focus of restricted diffusion to suggest acute infarct. No space-occupying le carlos identified. MIDLINE SHIFT: None. BRAINSTEM/CEREBELLUM: Normal. CALVARIUM: Normal. ENHANCEMENT: No suspicious enhancement identified. VISUALIZED PARANASAL SINUSES/MASTOIDS: There is a mucous retention cyst or polyp in the left sphenoid sinus. The remaining viewed visualized paranasal sinuses and mastoid air cells are clear. [place]: Normal flow void. PITUITARY GLAND: Unremarkable. No sellar or suprasellar mass. The infundibulum and optic chiasm are unremarkable. OTHER FINDINGS: The orbits and retro-orbital soft tissues are grossly unremarkable. IMPRESSION: Unremarkable MRI of the brain. DATA REPOSITORY:
[2021-05-12] MEDS: Normal Saline Flush 10 ML SYR IVP (15:13)
[2021-05-12] MEDS: Gadoterate meglumine 20 ML VIAL 14 ML IVP (15:14)
--- NOTE | 2021-05-12 16:48 | DI.VRAD_ITS ---
PROCEDURE INFORMATION: Exam: MR Head Without and With Contrast Exam date and time: 05/12/2021 3:24 PM Age: 65 years old Clinical indication: Visual disturbance; Patient HX: Horizontal diplopia, headache TECHNIQUE: Imaging protocol: MR of the head without and with intravenous contrast. Contrast material: DOTAREM; Contrast volume: 14 ml; Contrast route: INTRAVENOUS (IV); COMPARISON: CT HEAD WO 05/08/2021 11:30 AM FINDINGS: Brain: No acute infarct. Cerebral ventricles: Normal. No ventriculomegaly. Bones/joints: Unremarkable. Paranasal sinuses: Normal as visualized. No acute sinusitis. Mastoid air cells: Normal as visualized. No mastoid effusion. Orbital cavity: Unremarkable. Soft tissues: Unremarkable. Other findings: No hemorrhage. IMPRESSION: No acute intracranial abnormality. Dictated and Authenticated by: Dick Ventura MD. Ordering:USMAN Greer MD
== END 2021-05-12 11:22 ==
PROVIDERS: PCP Emergency Medicine; Visit Provider Emergency Medicine
DX: H53.2 Diplopia (principal); R51.9 Headache, unspecified
CPT/HCPCS: 70553

== ENCOUNTER 2021-05-13 03:08 | Outpatient (CLI) | payer MEDICARE, BC, SELFPAY ==
[2021-05-14 11:37] LABS: Lyme Ab w Rflx to Lyme Confirm Negative (Negative)
== END 2021-05-13 03:09 | disposition home or self-care (01) ==
LOC: LBO 03:08
PROVIDERS: PCP Emergency Medicine; Visit Provider Emergency Medicine
DX: M25.50 Pain in unspecified joint (principal)
CPT/HCPCS: 36415; 86618

== ENCOUNTER 2021-07-21 01:36 | Outpatient (CLI) | payer MEDICARE, BC, SELFPAY ==
--- NOTE | 2021-07-21 07:00 | DI.MAMMO_ITS ---
Exam(s) MAMMO SCREENING EXAM: MAMMO SCREENING CLINICAL HISTORY: screening,Z12.39 TECHNIQUE: Mammograms were interpreted according to the usual protocol including computer analysis w [employer] CAD system, tomosynthesis and C-view imaging. COMPARISON: FINDINGS: The breasts are of moderate radiodensity with fairly symmetrical distribution of fibroglandular tissu e. No dominant mass or clumped microcalcification is identified in either breast. The current exami nation is compared with previous examinations including June 2020 and there has been no gross int erval change in appearance in comparison with the prior studies. IMPRESSION: No specific evidence of malignancy at this time. Routine screening examinations are suggested at yea rly intervals due to the family history of breast carcinoma. BI-RADS Category 1 - Negative Breast Density - Category B - Scattered areas of fibroglandular density
== END 2021-07-21 01:56 ==
PROVIDERS: PCP Emergency Medicine; Visit Provider Emergency Medicine
DX: Z12.31 Encounter for screening mammogram for malignant neoplasm of breast (principal)
CPT/HCPCS: 77063; 77067

== ENCOUNTER 2022-07-20 13:30 | Outpatient (CLI) | payer MEDICARE, SELFPAY ==
--- NOTE | 2022-07-20 13:30 | RT.EKG_ITS ---
APPROVED REPORT Exam: Resting ECG Reason for Exam: Yealry visit Patient Location: O HR:66 bpm ECG Measurements Heart Rate 66 AXIS WA 167 P 49 QRSd 101 QRS 51 QT 393 T 66 QTc 412 Conclusion Sinus rhythm...normal P axis, V-rate 50- 99 Normal Electrocardiogram
== END 2022-07-20 13:31 | disposition home or self-care (01) ==
LOC: DI.CM 13:30
PROVIDERS: PCP Family Medicine; Visit Provider Family Medicine
DX: R07.9 Chest pain, unspecified (principal)
CPT/HCPCS: 93010

== ENCOUNTER → 2023-08-11 00:30 | Outpatient (CLI) | payer MEDICARE, SELFPAY ==
--- NOTE | 2023-08-11 08:30 | DI.DEXA_ITS ---
Exam(s) XR DEXA BONE DENSITY W/WO JESSA EXAM: XR DEXA BONE DENSITY W/WO JESSA CLINICAL HISTORY: MENOPAUSAL DISORDER, SCREENING FOR OSTEOPOROSIS, N95.9 TECHNIQUE: [employer] C densitometer analysis of left hip, lumbar spine and left forearm. Lat eral survey image of the thoracic and lumbar spine. COMPARISON: No exams were available for comparison FINDINGS: Lateral view of the thoracic and lumbar spine shows no evidence of compression fractures. Bone mineral density measurements of the lumbar spine correspond to a total T-score of -1.1, in the osteopenic range. Bone mineral density measurements of the left hip correspond to a total T-score of -1.3 . The femora l neck T-score is -1.9, in the osteopenic range.. Theleft forearm bone mineral density measurements correspond to a T-score of the distal 3rd of -2.0, in the osteopenic range.. IMPRESSION: Osteopenia of the lumbar spine, hip and forearm.
== END ==
PROVIDERS: PCP Family Medicine; Visit Provider Family Medicine
DX: N95.9 Unspecified menopausal and perimenopausal disorder (principal); Z13.820 Encounter for screening for osteoporosis; M85.89 Other specified disorders of bone density and structure, multiple sites
CPT/HCPCS: 77080

== ENCOUNTER 2023-08-11 18:38 | Outpatient (CLI) | payer MEDICARE, SELFPAY ==
[2023-08-11 15:45] LABS: ALT 22 U/L (14-59); AST 12 U/L (15-37); Albumin 3.3 g/dL (3.4-5.0); Alkaline Phosphatase 68 U/L (46-116); Bilirubin, Direct 0.1 mg/dL (0.0-0.2); Bilirubin, Total 0.2 mg/dL (0.2-1.0); Calculated LDL 158 mg/dL (<100); Cholesterol 243 mg/dL (<200); HDL Cholesterol 72 mg/dL (40-60); Total Protein 6.8 g/dL (6.4-8.2); Triglyceride 68 mg/dL (<150)
[2023-08-14 10:43] LABS: Hepatitis C Ab w Rflx HCV PCR Negative (Negative)
== END 2023-08-11 18:39 | disposition home or self-care (01) ==
LOC: LBO 18:38
PROVIDERS: PCP Family Medicine; Visit Provider Family Medicine
DX: Z11.59 Encounter for screening for other viral diseases (principal); Z13.6 Encounter for screening for cardiovascular disorders; E78.5 Hyperlipidemia, unspecified
CPT/HCPCS: 36415; 80061; 80076; 86803

== ENCOUNTER → 2023-08-25 01:10 | Outpatient (CLI) | payer MEDICARE, SELFPAY ==
--- NOTE | 2023-08-25 09:00 | DI.MAMMO_ITS ---
Exam(s) MAMMO SCREENING EXAM: MAMMO SCREENING CLINICAL HISTORY: screening, Z12.39. TECHNIQUE: Bilateral full field digital CC and MLO mammographic images were obtained with 3D tomosyn thesis and utilizing computer aided detection (CAD). COMPARISON: Prior mammograms were reviewed. FINDINGS: There has been no significant change in the appearance and distribution of the fibroglandular tissue. Two small benign appearing oval nodules located laterally in the left breast are unchanged from at le ast 2016, and therefore benign. There are no new spiculated masses nor malignant appearing microcalcification groups. There is no significant architectural distortion nor skin thickening-retraction. IMPRESSION: No radiographic evidence of malignancy. BI-RADS Category 1 - Negative Breast Density - Category B - Scattered areas of fibroglandular density Breast density Category C or D implies that the patient has dense breast tissue. Dense breast tissue can make it harder to find cancer on a mammogram. Dense breast tissue is also associated with an incr eased risk of breast cancer. This information about the result of the mammogram report was provided to the patient to raise their awareness. Use this report when you speak with the patient about their risks for breast cancer, which includes their family history. At that time, you may recommend additional screening tests (Ultrasoun d or MRI) as these tests may add significant information. A negative radiographic report should not delay biopsy if a dominant or clinically suspicious mass is present. Up to ten percent of cancers are not identified on mammography. A negative report may reinforce clinical impression. Adenosis and dense breasts may obscure an underlying neoplasm. False positive reports average 6 to 10%. Patient will receive a letter notifying them of these results.
== END ==
PROVIDERS: PCP Family Medicine; Visit Provider Family Medicine
DX: Z12.31 Encounter for screening mammogram for malignant neoplasm of breast (principal)
CPT/HCPCS: 77063; 77067

== ENCOUNTER 2023-11-02 03:49 | Outpatient (CLI) | payer MEDICARE, SELFPAY ==
[2023-11-02 13:24] LABS: ALT 21 U/L (14-59); AST 13 U/L (15-37); Albumin 3.5 g/dL (3.4-5.0); Alkaline Phosphatase 73 U/L (46-116); Anion Gap 8.3 mmol/L (3-11); BUN 14 mg/dL (7-18); Bilirubin, Total 0.4 mg/dL (0.2-1.0); CO2 28.7 mmol/L (21.0-32.0); CREATININE 1.1 mg/dL (0.55-1.02); Calcium 9.3 mg/dL (8.5-10.1); Chloride 107 mmol/L (98-107); Estimated GFR 54.39 (mL/min/1.73m2); Glucose 104 mg/dL (74-106); Potassium 3.8 mmol/L (3.5-5.1); Sodium 144 mmol/L (136-145); Total Protein 6.6 g/dL (6.4-8.2)
== END 2023-11-02 03:50 | disposition home or self-care (01) ==
LOC: LBO 03:49
PROVIDERS: PCP Family Medicine; Visit Provider Family Medicine
DX: Z00.00 Encounter for general adult medical examination without abnormal findings (principal); R25.2 Cramp and spasm
CPT/HCPCS: 36415; 80053; 83735

== ENCOUNTER 2024-08-23 00:33 | Outpatient (CLI) | payer MEDICARE, SELFPAY ==
--- NOTE | 2024-08-23 07:30 | DI.MAMMO_ITS ---
Exam(s) MAMMO DIAGNOSTIC BI EXAM: MAMMO DIAGNOSTIC BI CLINICAL HISTORY: left chest/breast pain, R07.9, N64.4 mastodynia TECHNIQUE: Mammograms were interpreted according to the usual protocol including computer analysis w [employer] CAD system, tomosynthesis and C-view imaging. COMPARISON: 2014 through 2022 FINDINGS: The breasts are composed of scattered fibroglandular densities, Breast Density category B. No suspicious masses or suspicious microcalcifications are seen. No skin thickening or abnormal axillary lymph nodes are seen. There has been no significant change from prior exams. IMPRESSION: BI-RADS Category 1, Negative mammogram Yearly screening mammography is recommended. Breast Density - Category B, scattered fibroglandular densities. A negative radiographic report should not delay biopsy if a dominant or clinically suspicious mass is present. Up to ten percent of cancers are not identified on mammography. A negative report may reinforce clinical impression. Adenosis and dense breasts may obscure an underlying neoplasm. False positive reports average 6 to 10%. Patient will receive a letter notifying them of these results.
--- NOTE | 2024-08-23 13:29 | DI.RAD_ITS ---
Exam(s) XR CHEST 2V PA LATERAL EXAM: XR CHEST 2V PA LATERAL CLINICAL HISTORY: left chest pain, R07.9 TECHNIQUE: 2D digital imaging was performed. Two views. COMPARISON: CR XR CHEST 2V PA LATERAL from 08/07/2019 FINDINGS: HEART: Normal size. Aorta: Not dilated. PULMONARY VASCULATURE: Normal. MEDIASTINUM: Unremarkable. LUNGS: Clear. PLEURAL SPACE: No pleural effusion or pneumothorax. BONE:Unremarkable for age. No no visible rib fracture SOFT TISSUES: Unremarkable. IMPRESSION: No acute abnormality. DATA REPOSITORY: RADIATION DOSE DELIVERED:
== END 2024-08-23 00:53 ==
LOC: DI 00:33
PROVIDERS: PCP Family Medicine; Visit Provider Emergency Medicine
DX: R07.9 Chest pain, unspecified (principal); N64.4 Mastodynia
CPT/HCPCS: 77062; 77066; 71046; G0279

== ENCOUNTER 2024-11-19 10:41 | Outpatient (CLI) | payer MEDICARE, SELFPAY ==
--- NOTE | 2024-11-19 10:30 | RT.EKG_ITS ---
APPROVED REPORT Exam: Resting ECG Reason for Exam: chest discomfort Patient Location: O HR:77 bpm ECG Measurements Heart Rate 77 AXIS IN 158 P 44 QRSd 97 QRS 71 QT 364 T 81 QTc 412 Conclusion Sinus rhythm...normal P axis, V-rate 50- 99 Nonspecific T abnrm, anterolateral leads...T <-0.10mV, I aVL V2-V6
== END 2024-11-19 10:42 | disposition home or self-care (01) ==
LOC: DI.CM 10:41
PROVIDERS: PCP Family Medicine; Visit Provider Nurse Practitioner Family
DX: R07.89 Other chest pain (principal)
CPT/HCPCS: 93010

== ENCOUNTER 2024-11-19 12:21 | Outpatient (CLI) | payer MEDICARE, SELFPAY ==
--- NOTE | 2024-11-19 11:30 | DI.RAD_ITS ---
Exam(s) XR CHEST 2V PA LATERAL EXAM: XR CHEST 2V PA LATERAL CLINICAL HISTORY: Chest discomfort, R07.89. TECHNIQUE: 2D digital imaging was performed. COMPARISON: CR XR CHEST 2V PA LATERAL from 08/07/2019 CR XR CHEST 2V PA LATERAL from 08/23/2024 FINDINGS: 2 views: Heart size is normal. The mediastinum is not widened. There is bilateral hyperinflation. There is platelike atelectasis again noted in the right lung base . There is also platelike atelectasis now evident in the left lung base just above the left hemidiap hragm. Both findings appear unchanged from July 2019. No new infiltrates nor pleural effusions. No pulmonary edema. IMPRESSION: Atelectasis or scarring in both lung bases which appears unchanged from chest x-ray of July 2019. DATA REPOSITORY: RADIATION DOSE DELIVERED:
== END 2024-11-19 12:41 ==
LOC: DI 12:23
PROVIDERS: PCP Family Medicine; Visit Provider Nurse Practitioner Family
DX: R07.89 Other chest pain (principal)
CPT/HCPCS: 71046

== ENCOUNTER 2024-12-05 00:47 | Outpatient (CLI) | payer MEDICARE, SELFPAY ==
--- NOTE | 2024-12-05 07:00 | ETT_ITS ---
APPROVED REPORT Exam: Exercise Treadmill Patient Location: Out-Patient Room/Bed: Stress Nurse: Lara Sawyer RN Ordering Provider:MEGHNA SINGH, Contact Number: [phone] BMI: 25.36 Baseline Rhythm: Sinus Rhythm Indications: Chest pain, Medical History Medical History: Chest pain, asthma, HLD Cardiac Medications: Albuterol sulfate, advair, gabapentin, certirizine, imitrex Allergies: Penicillins, azithromycin Cardiac Risk Factors: Family hx, asthma, HLD Previous Cardiac Procedures: None Pretest Chest Pain Characteristics: None Exercise History: Physically active Physical Disabilities: None Lung Sounds: Diminished in bilat bases Heart Sounds: Regular Stress Test Details Test: Exercise stress testing was performed using a Tomas protocol. Rest Stress HR Resting HR Supine: 69 bpm Max Heart Rate (APMHR): 150 bpm Resting HR Standin bpm Target HR (85% APMHR): 128 bpm Max HR Achieved: 135 bpm % of APMHR: 90 Recovery HR: 81 bpm HR response to stress: Normal HR response to stress BP Resting BP Supine: 112/72 mmHg Resting BP Standin/78 mmHg Max BP: 182/80 mmHg Recovery BP: 118/70 mmHg BP response to stress: Normal blood pressure response to stress. ECG Resting ECG: Sinus Rhythm Ectopy: None Stress ECG: Sinus Tachycardia ST Change: No significant ST segment changes noted Arrhythmia: Rare PVC's Recovery ECG: Sinus Rhythm Recovery ST Change: No significant ST segment changes noted Recovery Arrhythmia: Rare PVC's Clinical Reason for Termination: Target HR Achieved Stress Symptoms: Mod SOB Exercise duration: 05 min54 sec Highest Stage Reached: Stage 2: 2.5 mph at 12% grade. Exercise capacity: 7.05 METs Angina Score: None Espinoza Treadmill Score: 5.6 Rate Pressure Product: [id number] Stress ECG Conclusion 1. Resting electrocardiogram was normal 2. Patient exercised on the Tomas protocol completed workload of 7 METS 3. Normal heart rate and blood pressure response to exercise. The patient achieved 90% of maximal pr edicted heart rate for age 4. There was no electrocardiographic evidence of myocardial ischemia 5. There were no significant dysrhythmias Espinoza Treadmill Score is 5.6 which is Low risk. Stress Test Summary STAGE Time (mins) Speed (mph) Grade (%) HR BP SpO2 SYMPTOMS METS Supine 69 112/72 95% Standing 78 122/78 1 3 1.7 10 122 158/82 94% 4.5 2 6 2.5 12 135 7 1 min recovery 106 182/80 3 min recovery 81 148/68 98% 6 min recovery 81 118/70 97%
== END 2024-12-05 01:07 ==
LOC: DI 00:48
PROVIDERS: PCP Family Medicine; Visit Provider Nurse Practitioner Family
DX: R07.89 Other chest pain (principal)
CPT/HCPCS: 93016; 93018; 93017

== ENCOUNTER 2024-12-09 15:21 | Outpatient (CLI) | payer MEDICARE, SELFPAY ==
--- NOTE | 2024-12-09 15:15 | DI.RAD_ITS ---
Exam(s) XR FOOT LT COMPLETE EXAM: XR FOOT LT COMPLETE CLINICAL HISTORY: Lt foot pain, M79.672, eval fx. TECHNIQUE: 2D digital imaging was performed. COMPARISON: No exams were available for comparison FINDINGS: 3 views No evidence of acute fracture or diastasis of the Lisfranc joint, although there is some degenerative change at the main Lisfranc joint. 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 Other distal phalanges appear intact. There is mild hallux valgus and some mild degenerative change in the great toe metatarsophalangeal jenny int. There is a small inferior calcaneal spur and there is enthesophyte on the posterior calcaneus Terry s insertion site. There is also a dorsal talar beak versus is avulsion fragment off the distal dorsa l talus. This measures approximately 4 x 2 mm. IMPRESSION: Dorsal talar beak versus is subtle avulsion injury off the dorsal talus at this level. Correlation w ith site of tenderness is recommended. DATA REPOSITORY: RADIATION DOSE DELIVERED:
--- NOTE | 2024-12-09 15:15 | DI.RAD_ITS ---
Exam(s) XR ANKLE LT COMPLETE EXAM: XR ANKLE LT COMPLETE CLINICAL HISTORY: Lt ankle pain, M25.572, eval fx. TECHNIQUE: 2D digital imaging was performed. COMPARISON: No exams were available for comparison FINDINGS: 3 views No evidence of acute fracture or widening the ankle mortise. Talar dome appears unremarkable. Tibia l plafond and unremarkable. On the lateral view there is a small dorsal talar beak. There is a small-moderate size inferior calc aneal spur as well as enthesophyte on the posterior calcaneus Achilles insertion site. Bone density is normal. No significant osseous lesions. IMPRESSION: Findings as above but no acute fractures evident in the ankle. DATA REPOSITORY: RADIATION DOSE DELIVERED:
== END 2024-12-09 15:41 ==
LOC: DI 15:23
PROVIDERS: PCP Family Medicine; Visit Provider Nurse Practitioner Family
DX: M25.572 Pain in left ankle and joints of left foot (principal); M77.32 Calcaneal spur, left foot
CPT/HCPCS: 73610; 73630

== ENCOUNTER → 2025-08-27 10:56 | Outpatient (CLI) | payer MEDICARE, SELFPAY ==
--- NOTE | 2025-08-27 06:45 | DI.MAMMO_ITS ---
Exam(s) MAMMO SCREENING EXAM: MAMMO SCREENING CLINICAL HISTORY: screening,z12.39 TECHNIQUE: Mammograms were interpreted according to the usual protocol including computer analysis with CAD system, tomosynthesis and C-view imaging. COMPARISON: 2015 through 2023 FINDINGS: The breasts are composed of scattered fibroglandular densities, Breast Density category B. No suspicious masses or suspicious microcalcifications are seen. No skin thickening or abnormal axillary lymph nodes are seen. There has been no significant change from prior exams. IMPRESSION: BI-RADS Category 1, Negative mammogram Yearly screening mammography is recommended. Breast Density - Category B - There are scattered areas of fibroglandular density. Breast density Category C or D implies that the patient has dense breast tissue. Dense breast tissue can make it harder to find cancer on a mammogram. Dense breast tissue is also associated with an increased risk of breast cancer. This information about the result of the mammogram report was provided to the patient to raise their awareness. Use this report when you speak with the patient about their risks for breast cancer, which includes their family history. At that time, you may recommend additional screening tests (Ultrasound or MRI) as these tests may add significant information. A negative radiographic report should not delay biopsy if a dominant or clinically suspicious mass is present. Up to ten percent of cancers are not identified on mammography. A negative report may reinforce clinical impression. Adenosis and dense breasts may obscure an underlying neoplasm. False positive reports average 6 to 10%. Patient will receive a letter notifying them of these results.
== END ==
LOC: DI 10:56
PROVIDERS: PCP Family Medicine; Visit Provider Family Medicine
DX: Z12.31 Encounter for screening mammogram for malignant neoplasm of breast (principal); R92.323 Mammographic fibroglandular density, bilateral breasts
CPT/HCPCS: 77063; 77067